=== PATIENT | female | born 1950 | race Caucasian/White ===

== ENCOUNTER → 2016-04-21 | Outpatient (CLI) | payer BC, MEDICARE, MEDICAID ==
[~2016-04-21] MED LIST: AMITRIPTYLINE25 M1 PO; ATROVENT I0.2 MG/1 M INH; ATROVENT INHALE14 GM IH; BREO ELLIPTA1 POW INH; CELEXA20 MG PO; COMPAZINE5 M1 PO; DULERA1 AR1 IH; ED SEPTRA/2 TAB/BOTT PO; ESTRACE1 MG PO; FOLIC ACID PO; IRON325 M1 PO; MAGNESIUM OXID420 MG PO; METAXALONE800 M1 PO; NORCO 325 MG-51 TA1 PO; OMEPRAZOLE MAGN20 MG PO; POTASSIUM CHLO20 MEQ PO; PREDNISONE20 M1 PO; PROVENTIL0.09 MG/A1 IH; PROVENTIL0.09 MG/Ac IH; SPIRIVA HANDIH18 MCG IH; SUMATRIPTAN SU100 MG PO; TOPAMAX50 MG PO; TRIAMTERENE/HCT1 TAB PO; VERAPAMIL HCL120 M1 PO; ZYRTEC 10MG10 MG PO; [UNRECOGNIZED DRUG - OTHER] PO
== END ==
LOC: LAB 09:54
DX: D50.0 Iron deficiency anemia secondary to blood loss (chronic) (principal)

== ENCOUNTER 2016-05-23 05:39 | Emergency (ER) | payer BC, MEDICARE, MEDICAID ==
[~2016-05-23 05:39] MED LIST changes: -ED SEPTRA/2 TAB/BOTT PO
[2016-05-23] MEDS ORDERED: ED SEPTRA/2 TAB/BOTT PO (09:18)
[2016-05-23 09:33] VITALS: BP 150/69
== END 2016-05-23 09:32 | disposition home or self-care (01) ==
LOC: ED 05:39
DX: K59.00 Constipation, unspecified (principal); N39.0 Urinary tract infection, site not specified
CPT/HCPCS: A4353

== ENCOUNTER → 2016-06-01 | Outpatient (CLI) | payer BC, MEDICARE, MEDICAID ==
[~2016-06-01] MED LIST changes: +ED SEPTRA/2 TAB/BOTT PO
== END ==
LOC: LAB 13:50
DX: Z00.00 Encounter for general adult medical examination without abnormal findings (principal); I10 Essential (primary) hypertension; J44.9 Chronic obstructive pulmonary disease, unspecified; G40.309 Generalized idiopathic epilepsy and epileptic syndromes, not intractable, without status epilepticus; K21.9 Gastro-esophageal reflux disease without esophagitis; M81.8 Other osteoporosis without current pathological fracture; K59.09 Other constipation; R73.02 Impaired glucose tolerance (oral); D50.0 Iron deficiency anemia secondary to blood loss (chronic)

== ENCOUNTER → 2016-06-10 | Outpatient (CLI) | payer BC, MEDICARE, MEDICAID | LOC: RAD 09:59 | DX: Z13.820 Encounter for screening for osteoporosis (principal); M81.0 Age-related osteoporosis without current pathological fracture ==

== ENCOUNTER → 2016-06-23 | Outpatient (CLI) | payer BC, MEDICARE, MEDICAID | LOC: LAB 13:34 | DX: M79.1 Myalgia (principal) ==

== ENCOUNTER → 2017-01-07 | Outpatient (CLI) | payer BC, MEDICARE, MEDICAID ==
[~2017-01-07] VITALS: Ht 157.5 cm; Wt 66.8 kg
[~2017-01-07] MED LIST changes: +CYMBALTA60 M1 PO; +FOSAMAX PLUS D1 TAB PO; +LOPERAMIDE2 M2 PO; +PREMARIN30 GM VG; +REQUIP0.25 M1; +XARELTO10 MG PO
[2017-01-07 14:43] VITALS: BP 147/74
== END ==
LOC: AMSURD 14:17
DX: R00.2 Palpitations (principal)

== ENCOUNTER → 2017-08-15 | Outpatient (CLI) | payer BC, MEDICARE, MEDICAID ==
[2017-01-07 14:43] VITALS: BP 147/74
== END ==
LOC: CARDLAB 07:59 → CARDREHAB 14:59
DX: R07.9 Chest pain, unspecified (principal)

== ENCOUNTER → 2017-08-31 | Outpatient (CLI) | payer BC, MEDICARE, MEDICAID ==
[2017-01-07 14:43] VITALS: BP 147/74
[2017-08-31 10:38] LABS: PROTHROMBIN TIME 9.6 SECONDS (9.0-12.0)
[2017-08-31 10:42] LABS: ALT/SGPT 19 U/L (9-52); AST-SGOT 17 U/L (14-36); BUN/CREATININE RATIO 22.1 (6.0-26.0); CALCIUM 9.9 mg/dL (8.4-10.2); CARBON DIOXIDE 28 mmol/L (22-30); GLUCOSE 99 mg/dL (65-105); LIPASE 75 U/L (23-300); POTASSIUM 4.1 mmol/L (3.6-5.0); SODIUM 143 mmol/L (137-145); TOTAL BILIRUBIN 0.2 mg/dL (0.2-1.3); TOTAL PROTEIN 7.1 g/dL (6.3-8.2)
== END ==
LOC: LAB 10:15
PROVIDERS: Family Medicine
DX: R10.9 Unspecified abdominal pain (principal); R23.8 Other skin changes

== ENCOUNTER → 2017-09-16 | Outpatient (CLI) | payer BC, MEDICARE, MEDICAID ==
[2017-01-07 14:43] VITALS: BP 147/74
== END ==
LOC: CARDLAB 09-09 09:54 → CARDREHAB 10:27 → CARDLAB 11:07
DX: R07.9 Chest pain, unspecified (principal)
CPT/HCPCS: A9500

== ENCOUNTER → 2017-09-23 | Outpatient (CLI) | payer BC, MEDICARE, MEDICAID ==
[2017-01-07 14:43] VITALS: BP 147/74
== END ==
LOC: LAB 09:13
DX: D64.9 Anemia, unspecified (principal); R14.2 Eructation; R14.0 Abdominal distension (gaseous); K21.9 Gastro-esophageal reflux disease without esophagitis; R12 Heartburn; K44.9 Diaphragmatic hernia without obstruction or gangrene

== ENCOUNTER → 2017-12-05 | Outpatient (CLI) | payer BC, MEDICARE, MEDICAID ==
[2017-01-07 14:43] VITALS: BP 147/74
== END ==
LOC: RAD 14:46
DX: M51.37 Other intervertebral disc degeneration, lumbosacral region (principal); M48.07 Spinal stenosis, lumbosacral region; M51.26 Other intervertebral disc displacement, lumbar region; M43.8X6 Other specified deforming dorsopathies, lumbar region

== ENCOUNTER 2018-02-05 09:13 | Emergency (ER) | payer BC, MEDICARE, MEDICAID ==
[~2018-02-05] VITALS: Ht 152.4 cm; Wt 68.2 kg
[2018-02-05 09:17] VITALS: BP 128/58
[2018-02-05] MEDS ORDERED: CELEXA 20MG20 MG/TA1 PO (09:20)
[2018-02-05] MEDS ORDERED: ACETAMINOPHEN-O1 TAB PO (09:20)
[2018-02-05] MEDS ORDERED: AMBIEN5 M1 PO (09:20)
[2018-02-05] MEDS ORDERED: VENLAFAXINE H37.5 M4 PO (09:20)
== END 2018-02-05 11:11 | disposition home or self-care (01) ==
LOC: ED 09:13
DX: S80.02XA Contusion of left knee, initial encounter (principal); W01.198A Fall on same level from slipping, tripping and stumbling with subsequent striking against other object, initial encounter; Y93.01 Activity, walking, marching and hiking; Y92.9 Unspecified place or not applicable; G40.909 Epilepsy, unspecified, not intractable, without status epilepticus

== ENCOUNTER 2018-06-20 19:37 | Emergency (ER) | payer BC, MEDICARE, MEDICAID ==
[~2018-06-20 19:37] MED LIST changes: +ACETAMINOPHEN-O1 TAB PO; +AMBIEN5 M1 PO; +CELEXA 20MG20 MG/TA1 PO; -PROVENTIL0.09 MG/A1 IH; +VENLAFAXINE H37.5 M4 PO
[2018-06-20] MEDS ORDERED: CYCLOBENZAPRINE10 M1 PO (19:50)
[2018-06-20] MEDS ORDERED: TOVIAZ4 MG PO (19:52)
[2018-06-20 20:56] LABS: BASO # 0.1 (0.02-0.10); EOS # 0.1 (0.04-0.40); EOS % 0.8 % (1.0-5.0); HEMATOCRIT 39.1 % (37.0-47.0); HEMOGLOBIN 12.6 g/dL (12.5-16.0); LYMPH# 2.6 (1.50-4.00); MEAN CELL VOLUME 86 fl (78-100); MEAN CORPUSCULAR HEMOGLOBIN 28 pg (27-31); MEAN CORPUSCULAR HGB CONC 32 g/dL (33-37); MEAN PLATELET VOLUME 10.5 fl (7.4-10.4); MONO # 0.9 (0.20-0.80); NEU # 8.3 (1.40-6.50); PLATELET COUNT 334 K/mm3 (130-400); RED BLOOD COUNT 4.55 M/mm3 (4.10-5.30); RED CELL DISTRIBUTION WIDTH 13.8 % (11.5-14.5)
[2018-06-20] MEDS ORDERED: OMEPRAZOLE D/R20 MG PO (20:59)
[2018-06-20] MEDS ORDERED: SUCRALFATE1 G1 PO (21:00)
[2018-06-20] MEDS ORDERED: ZOFRAN4 M2 (21:01)
[2018-06-20] MEDS ORDERED: LOPERAMIDE2 M2 (21:01)
[2018-06-20] MEDS ORDERED: VENLAFAXINE HYD25 MG (21:01)
[2018-06-20 21:08] LABS: ALT/SGPT 15 U/L (9-52); AST-SGOT 19 U/L (14-36); CALCIUM 9.1 mg/dL (8.4-10.2); CARBON DIOXIDE 29 mmol/L (22-30); GLUCOSE 125 mg/dL (65-105); POTASSIUM 4.1 mmol/L (3.6-5.0); SODIUM 135 mmol/L (137-145); TOTAL BILIRUBIN 0.6 mg/dL (0.2-1.3); TOTAL PROTEIN 7.2 g/dL (6.3-8.2)
[2018-06-20 21:24] LABS: ACETAMINOPHEN < 4 ug/mL (10-30); ALCOHOL IN-HOUSE < 10 mg/dL
[2018-06-20 21:33] LABS: URINE APPEARANCE HAZY; URINE COLOR YELLOW
[2018-06-20 21:34] LABS: URINE BILIRUBIN NEGATIVE (NEGATIVE); URINE BLOOD NEGATIVE (NEGATIVE); URINE GLUCOSE NEGATIVE (NEGATIVE); URINE KETONE NEGATIVE (NEGATIVE); URINE LEUKOCYTE ESTERASE NEGATIVE (NEGATIVE); URINE MUCUS PRESENT (NOT PRESENT); URINE NITRATE NEGATIVE (NEGATIVE); URINE PROTEIN(semi-quant) TRACE mg/dL (NEGATIVE); URINE UROBILINOGEN NORMAL (NORMAL)
[2018-06-20] MEDS ORDERED: THEOPHYLLINE A300 M1 PO (22:52)
[2018-06-20] MEDS ORDERED: PROVENTIL0.09 MG/A1 IH (22:53)
[2018-06-20] MEDS ORDERED: SYMBICORT1 AE3 IH (22:54)
[2018-06-20 23:23] LABS: PROTHROMBIN TIME 9.9 SECONDS (9.0-12.0)
[2018-06-21 02:09] VITALS: BP 128/63
== END 2018-06-21 02:30 | disposition short-term general hospital (02) ==
LOC: ED 19:37
PROVIDERS: Nurse Practitioner Family
DX: R45.851 Suicidal ideations (principal); R41.82 Altered mental status, unspecified; S31.109A Unspecified open wound of abdominal wall, unspecified quadrant without penetration into peritoneal cavity, initial encounter; J44.9 Chronic obstructive pulmonary disease, unspecified; F32.9 Major depressive disorder, single episode, unspecified; M79.7 Fibromyalgia; Z90.710 Acquired absence of both cervix and uterus; Z87.891 Personal history of nicotine dependence
CPT/HCPCS: J2060; J2270; J7030

== ENCOUNTER → 2018-08-11 | Outpatient (CLI) | payer BC, MEDICARE, MEDICAID ==
[~2018-08-11] MED LIST changes: +CYCLOBENZAPRINE10 M1 PO; +LOPERAMIDE2 M2; +OMEPRAZOLE D/R20 MG PO; +PROVENTIL0.09 MG/A1 IH; +SUCRALFATE1 G1 PO; +SYMBICORT1 AE3 IH; +THEOPHYLLINE A300 M1 PO; +TOVIAZ4 MG PO; +VENLAFAXINE HYD25 MG; +ZOFRAN4 M2
== END ==
LOC: RAD 10:06
DX: M25.532 Pain in left wrist (principal); M79.642 Pain in left hand

== ENCOUNTER → 2018-09-08 | Outpatient (CLI) | payer BC, MEDICARE, MEDICAID ==
[2018-09-08 11:49] LABS: BASO # 0.1 (0.02-0.10); EOS # 0.1 (0.04-0.40); EOS % 1.4 % (1.0-5.0); HEMATOCRIT 47.1 % (37.0-47.0); HEMOGLOBIN 15.1 g/dL (12.5-16.0); LYMPH# 2.1 (1.50-4.00); MEAN CELL VOLUME 91 fl (78-100); MEAN CORPUSCULAR HEMOGLOBIN 29 pg (27-31); MEAN CORPUSCULAR HGB CONC 32 g/dL (33-37); MEAN PLATELET VOLUME 10.3 fl (7.4-10.4); MONO # 0.7 (0.20-0.80); NEU # 4.9 (1.40-6.50); PLATELET COUNT 327 K/mm3 (130-400); RED BLOOD COUNT 5.17 M/mm3 (4.10-5.30); RED CELL DISTRIBUTION WIDTH 15.4 % (11.5-14.5); WHITE BLOOD COUNT 7.9 K/mm3 (4.8-10.8)
== END ==
LOC: LAB 11:22
PROVIDERS: Family Medicine
DX: D50.0 Iron deficiency anemia secondary to blood loss (chronic) (principal)

== ENCOUNTER → 2018-10-26 | Outpatient (CLI) | payer BC, MEDICARE, MEDICAID | LOC: RAD 06:58 | DX: R10.11 Right upper quadrant pain (principal) ==

== ENCOUNTER → 2019-03-29 | Outpatient (CLI) | payer BC, MEDICARE, MEDICAID ==
[2019-03-29 11:58] LABS: EOS # 0.1 (0.04-0.40); EOS % 0.8 % (1.0-5.0); HEMATOCRIT 45.5 % (37.0-47.0); HEMOGLOBIN 14.9 g/dL (12.5-16.0); LYMPH# 2.6 (1.50-4.00); MEAN CELL VOLUME 89 fl (78-100); MEAN CORPUSCULAR HEMOGLOBIN 29 pg (27-31); MEAN CORPUSCULAR HGB CONC 33 g/dL (33-37); MEAN PLATELET VOLUME 10.1 fl (7.4-10.4); MONO # 0.8 (0.20-0.80); NEU # 6.1 (1.40-6.50); PLATELET COUNT 334 K/mm3 (130-400); RED BLOOD COUNT 5.14 M/mm3 (4.10-5.30); RED CELL DISTRIBUTION WIDTH 14.1 % (11.5-14.5); WHITE BLOOD COUNT 9.6 K/mm3 (4.8-10.8)
== END ==
LOC: LAB 11:46
PROVIDERS: Family Medicine
DX: D50.0 Iron deficiency anemia secondary to blood loss (chronic) (principal)

== ENCOUNTER 2019-05-10 03:55 | Emergency (ER) | payer BC, MEDICARE, MEDICAID ==
[2019-05-10] MEDS ORDERED: SPIRIVA RE2.5 MCG/Ac IH (04:05)
[2019-05-10] MEDS ORDERED: VENLAFAXINE HY150 MG PO (04:06)
[2019-05-10] MEDS ORDERED: NORVASC 10MG10 MG PO (04:06)
[2019-05-10] MEDS ORDERED: FOLIC ACID 40400 MCG PO (04:07)
[2019-05-10] MEDS ORDERED: CARAFATE 1GM1 G PO (04:07)
[2019-05-10] MEDS ORDERED: PRILOSEC 20MG20 MG PO (04:19)
[2019-05-10] MEDS ORDERED: ZOFRAN4 M2 PO (04:20)
[2019-05-10 05:09] LABS: ALBUMIN 3.5 g/dL (3.4-4.8)
[2019-05-10 05:10] LABS: POTASSIUM 4.6 mmol/L (3.5-5.1)
[2019-05-10 05:11] LABS: CALCIUM 9.1 mg/dL (8.3-10.5)
[2019-05-10 05:12] LABS: TOTAL PROTEIN 6.1 g/dL (6.2-8.1)
[2019-05-10 05:13] LABS: EOS # 0.1 (0.04-0.40); EOS % 0.9 % (1.0-5.0); HEMATOCRIT 41.2 % (37.0-47.0); HEMOGLOBIN 12.9 g/dL (12.5-16.0); LYMPH# 2.7 (1.50-4.00); MEAN CELL VOLUME 92 fl (78-100); MEAN CORPUSCULAR HEMOGLOBIN 29 pg (27-31); MEAN CORPUSCULAR HGB CONC 31 g/dL (33-37); MEAN PLATELET VOLUME 9.8 fl (7.4-10.4); MONO # 1.2 (0.20-0.80); NEU # 7.9 (1.40-6.50); PLATELET COUNT 332 K/mm3 (130-400); RED BLOOD COUNT 4.47 M/mm3 (4.10-5.30); RED CELL DISTRIBUTION WIDTH 14.8 % (11.5-14.5); WHITE BLOOD COUNT 11.9 K/mm3 (4.8-10.8)
[2019-05-10 05:14] LABS: TOTAL BILIRUBIN 0.3 mg/dL (0.2-1.2)
[2019-05-10 05:29] LABS: LIPASE 6 U/L (8-78)
[2019-05-10 05:36] LABS: PH-URINE 6.5 (5.0 - 8.0); URINE APPEARANCE CLOUDY; URINE BILIRUBIN NEGATIVE (NEGATIVE); URINE BLOOD TRACE (NEGATIVE); URINE COLOR LT YELLOW; URINE GLUCOSE 50 mg/dL mg/dL (NEGATIVE); URINE KETONE NEGATIVE (NEGATIVE); URINE LEUKOCYTE ESTERASE TRACE (NEGATIVE); URINE NITRATE NEGATIVE (NEGATIVE); URINE PROTEIN(semi-quant) TRACE mg/dL (NEGATIVE); URINE UROBILINOGEN NORMAL (NORMAL)
[2019-05-10 05:37] LABS: D-DIMER 0.31 mg/L FEU (0.15-0.50)
[2019-05-10 05:52] VITALS: BP 154/77
[2019-05-10] MEDS ORDERED: CYCLOBENZAPRINE10 M1 PO (05:52)
[2019-05-10] MEDS ORDERED: MACROBID 100 M100 MG PO (05:52)
== END 2019-05-10 05:58 | disposition home or self-care (01) ==
LOC: ED 03:55
PROVIDERS: Physician Assistant
DX: M54.6 Pain in thoracic spine (principal); G89.29 Other chronic pain; N39.0 Urinary tract infection, site not specified; M79.7 Fibromyalgia; J44.9 Chronic obstructive pulmonary disease, unspecified; Z88.6 Allergy status to analgesic agent; Z87.891 Personal history of nicotine dependence
CPT/HCPCS: J2270

== ENCOUNTER → 2019-05-24 | Outpatient (CLI) | payer BC, MEDICARE ==
[2019-05-10 05:52] VITALS: BP 154/77
[~2019-05-24] MED LIST changes: +CARAFATE 1GM1 G PO; +FOLIC ACID 40400 MCG PO; +MACROBID 100 M100 MG PO; +NORVASC 10MG10 MG PO; +PRILOSEC 20MG20 MG PO; +SPIRIVA RE2.5 MCG/Ac IH; +VENLAFAXINE HY150 MG PO; +ZOFRAN4 M2 PO
== END ==
LOC: RAD 05-23 09:15
DX: M43.8X4 Other specified deforming dorsopathies, thoracic region (principal); M48.061 Spinal stenosis, lumbar region without neurogenic claudication; M47.816 Spondylosis without myelopathy or radiculopathy, lumbar region; M51.34 Other intervertebral disc degeneration, thoracic region; M51.36 Other intervertebral disc degeneration, lumbar region

== ENCOUNTER → 2019-08-21 | Outpatient (CLI) | payer BC, MEDICARE ==
[2019-08-21 13:13] LABS: HEMATOCRIT 37.9 % (37.0-47.0); HEMOGLOBIN 11.7 g/dL (12.5-16.0); MEAN PLATELET VOLUME 9.4 fl (7.4-10.4); RED BLOOD COUNT 4.39 M/mm3 (4.10-5.30); RED CELL DISTRIBUTION WIDTH 13.6 % (11.5-14.5); WHITE BLOOD COUNT 9.8 K/mm3 (4.8-10.8)
[2019-08-22 16:05] LABS: POTASSIUM 3.6 mmol/L (3.5-5.1)
[2019-08-22 16:06] LABS: CALCIUM 9.2 mg/dL (8.3-10.5)
[2019-08-22 16:13] LABS: MAGNESIUM 2.26 mg/dL (1.60-2.60)
== END ==
LOC: LAB 12:53
PROVIDERS: Family Medicine
DX: D50.0 Iron deficiency anemia secondary to blood loss (chronic) (principal); M81.0 Age-related osteoporosis without current pathological fracture

== ENCOUNTER → 2020-01-04 | Outpatient (CLI) | payer BC, MEDICARE | LOC: RAD 14:39 | DX: S62.613A Displaced fracture of proximal phalanx of left middle finger, initial encounter for closed fracture (principal) ==

== ENCOUNTER → 2020-02-22 | Outpatient (CLI) | payer BC, MEDICARE ==
[2020-02-22 22:29] LABS: IMMUNOGLOBULIN E, TOTAL 250 IU/mL (0-100)
== END ==
LOC: LAB 11:27
PROVIDERS: Physician Assistant
DX: R06.02 Shortness of breath (principal)

== ENCOUNTER → 2020-04-28 | Outpatient (CLI) | payer BC, MEDICARE ==
[2020-04-28 17:37] LABS: EOS # 0.2 (0.04-0.40); EOS % 2.3 % (1.0-5.0); HEMATOCRIT 43.4 % (37.0-47.0); HEMOGLOBIN 13.8 g/dL (12.5-16.0); LYMPH# 2.5 (1.50-4.00); MEAN CELL VOLUME 94 fl (78-100); MEAN CORPUSCULAR HEMOGLOBIN 30 pg (27-31); MEAN CORPUSCULAR HGB CONC 32 g/dL (33-37); MEAN PLATELET VOLUME 9.9 fl (7.4-10.4); MONO # 0.8 (0.20-0.80); NEU # 4.1 (1.40-6.50); PLATELET COUNT 333 K/mm3 (130-400); RED BLOOD COUNT 4.61 M/mm3 (4.10-5.30); RED CELL DISTRIBUTION WIDTH 13.5 % (11.5-14.5); WHITE BLOOD COUNT 7.7 K/mm3 (4.8-10.8)
[2020-04-28 17:45] LABS: ALBUMIN 4.1 g/dL (3.4-4.8); POTASSIUM 4.4 mmol/L (3.5-5.1)
[2020-04-28 17:46] LABS: CALCIUM 9.2 mg/dL (8.3-10.5)
[2020-04-28 17:47] LABS: TOTAL PROTEIN 6.8 g/dL (6.2-8.1)
[2020-04-28 17:49] LABS: TOTAL BILIRUBIN 0.2 mg/dL (0.2-1.2)
== END ==
LOC: LAB 17:16
PROVIDERS: Family Medicine
DX: D50.9 Iron deficiency anemia, unspecified (principal); M81.0 Age-related osteoporosis without current pathological fracture; I10 Essential (primary) hypertension

== ENCOUNTER → 2020-07-09 | Outpatient (CLI) | payer BC, MEDICARE ==
[~2020-07-09] MED LIST changes: +IPRATROPIUM BROM3 M1 IH; +LOSARTAN POTAS100 MG PO
== END ==
LOC: RAD 14:20 → MAMMO 15:15
DX: M81.0 Age-related osteoporosis without current pathological fracture (principal)

== ENCOUNTER → 2020-09-12 | Outpatient (CLI) | payer BC, MEDICARE ==
[2020-09-12 14:35] VITALS: BP 200/95
[2020-09-12 15:00] VITALS: BP 197/101
[2020-09-12 15:02] LABS: HEMATOCRIT 39.9 % (37.0-47.0); HEMOGLOBIN 13.1 g/dL (12.5-16.0); MEAN PLATELET VOLUME 10.6 fl (7.4-10.4); RED BLOOD COUNT 4.26 M/mm3 (4.10-5.30); RED CELL DISTRIBUTION WIDTH 13.7 % (11.5-14.5); WHITE BLOOD COUNT 8.1 K/mm3 (4.8-10.8)
[2020-09-12 15:19] LABS: ALBUMIN 3.8 g/dL (3.4-4.8); POTASSIUM 3.4 mmol/L (3.5-5.1); SODIUM 141 mmol/L (136-145)
[2020-09-12 15:21] LABS: CALCIUM 9.2 mg/dL (8.3-10.5)
[2020-09-12 15:22] LABS: GLUCOSE 88 mg/dL (65-105); TOTAL PROTEIN 6.1 g/dL (6.2-8.1)
[2020-09-12 15:23] LABS: CARBON DIOXIDE 28 mmol/L (23-31)
[2020-09-12 15:24] LABS: TOTAL BILIRUBIN 0.2 mg/dL (0.2-1.2)
[2020-09-12 15:27] LABS: AST-SGOT 11 U/L (5-34)
[2020-09-12 15:28] LABS: ALT/SGPT 8 U/L (0-55)
[2020-09-12 15:30] VITALS: BP 186/96
[2020-09-12 15:57] LABS: TROPONIN-I < 0.03 ng/mL (<0.030)
[2020-09-12 16:10] VITALS: BP 172/89
== END ==
LOC: AMSURD 14:25
PROVIDERS: Nurse Practitioner
DX: I16.0 Hypertensive urgency (principal); R11.0 Nausea

== ENCOUNTER → 2020-10-27 | Outpatient (CLI) | payer BC, MEDICARE | LOC: RAD 15:56 | DX: K44.9 Diaphragmatic hernia without obstruction or gangrene (principal); R06.00 Dyspnea, unspecified; M43.8X4 Other specified deforming dorsopathies, thoracic region; Z90.49 Acquired absence of other specified parts of digestive tract ==

== ENCOUNTER → 2020-12-11 | Outpatient (CLI) | payer BC, MEDICARE ==
[2020-12-11 15:00] LABS: BASO # 0.03 (0.02-0.10); EOS # 0.11 (0.04-0.40); HEMATOCRIT 42.3 % (37.0-47.0); HEMOGLOBIN 13.3 g/dL (12.5-16.0); LYMPH# 2.49 (1.50-4.00); MEAN CELL VOLUME 89 fl (78-100); MEAN CORPUSCULAR HEMOGLOBIN 28 pg (27-31); MEAN CORPUSCULAR HGB CONC 31 g/dL (33-37); MEAN PLATELET VOLUME 9.4 fl (7.4-10.4); MONO # 1.13 (0.20-0.80); NEU # 7.01 (1.40-6.50); RED BLOOD COUNT 4.74 M/mm3 (4.10-5.30); RED CELL DISTRIBUTION WIDTH 13.3 % (11.5-14.5); WHITE BLOOD COUNT 10.8 K/mm3 (4.8-10.8)
[2020-12-11 15:57] LABS: PLATELET COUNT 546 K/mm3 (130-400)
[2020-12-12 03:20] LABS: FOLATE (FOLIC ACID) >20.0 ng/mL (2.0-20.0)
== END ==
LOC: LAB 14:43
PROVIDERS: Nurse Practitioner Adult Health
DX: D50.0 Iron deficiency anemia secondary to blood loss (chronic) (principal)

== ENCOUNTER 2021-02-25 15:07 | Emergency (ER) | payer BC, MEDICARE ==
[~2021-02-25] VITALS: Ht 157.5 cm; Wt 54.1 kg
[~2021-02-25 15:07] MED LIST changes: -LOSARTAN POTAS100 MG PO
[2021-02-25 16:30] LABS: BASO # 0.04 K/mm3 (0.02-0.10); EOS # 0.03 K/mm3 (0.04-0.40); EOS % 0.3 % (1.0-5.0); HEMATOCRIT 38.2 % (37.0-47.0); HEMOGLOBIN 12.2 g/dL (12.5-16.0); LYMPH# 1.04 K/mm3 (1.50-4.00); MEAN CELL VOLUME 92 fl (78-100); MEAN CORPUSCULAR HEMOGLOBIN 29 pg (27-31); MEAN CORPUSCULAR HGB CONC 32 g/dL (33-37); MEAN PLATELET VOLUME 10.5 fl (7.4-10.4); MONO # 0.28 K/mm3 (0.20-0.80); PLATELET COUNT 366 K/mm3 (130-400); RED BLOOD COUNT 4.16 M/mm3 (4.10-5.30); RED CELL DISTRIBUTION WIDTH 17.2 % (11.5-14.5); WHITE BLOOD COUNT 10.7 K/mm3 (4.8-10.8)
[2021-02-25 16:33] LABS: ALBUMIN 4.5 g/dL (3.4-4.8); POTASSIUM 4.2 mmol/L (3.5-5.1); SODIUM 138 mmol/L (136-145)
[2021-02-25 16:35] LABS: CALCIUM 10.6 mg/dL (8.3-10.5)
[2021-02-25 16:36] LABS: GLUCOSE 118 mg/dL (65-105); TOTAL PROTEIN 7.5 g/dL (6.2-8.1)
[2021-02-25 16:37] LABS: CARBON DIOXIDE 27 mmol/L (23-31)
[2021-02-25 16:38] LABS: TOTAL BILIRUBIN 0.4 mg/dL (0.2-1.2)
[2021-02-25 16:41] LABS: AST-SGOT 15 U/L (5-34)
[2021-02-25 16:43] LABS: ALT/SGPT 14 U/L (0-55)
[2021-02-25 16:44] LABS: ACETAMINOPHEN < 1 ug/mL
[2021-02-25 18:54] LABS: URINE APPEARANCE CLEAR; URINE BILIRUBIN NEGATIVE (NEGATIVE); URINE BLOOD 50 ery/uL (NEGATIVE); URINE COLOR YELLOW; URINE GLUCOSE NEGATIVE (NEGATIVE); URINE KETONE NEGATIVE (NEGATIVE); URINE LEUKOCYTE ESTERASE 1+ (NEGATIVE); URINE MUCUS PRESENT (NOT PRESENT); URINE NITRATE NEGATIVE (NEGATIVE); URINE PROTEIN(semi-quant) 1+ mg/dL (NEGATIVE); URINE UROBILINOGEN NORMAL (NORMAL)
[2021-02-26] MEDS ORDERED: LOSARTAN POTAS100 MG PO (19:08)
[2021-02-27 07:45] VITALS: BP 134/86
== END 2021-02-27 07:45 ==
LOC: ED 15:07
PROVIDERS: Physician Assistant
DX: F23 Brief psychotic disorder (principal); R44.3 Hallucinations, unspecified; F10.10 Alcohol abuse, uncomplicated; F41.9 Anxiety disorder, unspecified; F32.A Depression, unspecified; I10 Essential (primary) hypertension; K21.9 Gastro-esophageal reflux disease without esophagitis; E66.9 Obesity, unspecified; M79.7 Fibromyalgia; Z68.21 Body mass index [BMI] 21.0-21.9, adult; Z79.899 Other long term (current) drug therapy
CPT/HCPCS: J7030; L0172

== ENCOUNTER → 2021-04-16 | Outpatient (CLI) | payer BC, MEDICARE ==
[~2021-04-16] MED LIST changes: +LOSARTAN POTAS100 MG PO
== END ==
LOC: RAD 12:12
DX: M85.811 Other specified disorders of bone density and structure, right shoulder (principal)

== ENCOUNTER → 2021-06-03 | Outpatient (CLI) | payer BC, MEDICARE | LOC: MAMMO 06-02 10:45 | DX: Z13.820 Encounter for screening for osteoporosis (principal); Z12.31 Encounter for screening mammogram for malignant neoplasm of breast; I10 Essential (primary) hypertension; Z87.891 Personal history of nicotine dependence ==

== ENCOUNTER → 2021-06-22 | Outpatient (CLI) | payer BC, MEDICARE | LOC: RAD 12:00 | DX: K44.9 Diaphragmatic hernia without obstruction or gangrene (principal); S22.42XA Multiple fractures of ribs, left side, initial encounter for closed fracture; M48.55XA Collapsed vertebra, not elsewhere classified, thoracolumbar region, initial encounter for fracture; X58.XXXA Exposure to other specified factors, initial encounter ==

== ENCOUNTER 2021-07-17 18:00 | Emergency (ER) | payer BC, MEDICARE ==
[~2021-07-17] VITALS: Ht 157.5 cm; Wt 54.1 kg
[2021-07-17] MEDS ORDERED: CYCLOBENZAPRINE10 M1 PO (20:04)
[2021-07-17] MEDS ORDERED: PERCOCET 325 MG1 TA3 PO (20:04)
[2021-07-17 20:15] VITALS: BP 165/98
== END 2021-07-17 20:15 | disposition home or self-care (01) ==
LOC: ED 18:00
DX: S22.089A Unspecified fracture of T11-T12 vertebra, initial encounter for closed fracture (principal); W18.30XA Fall on same level, unspecified, initial encounter
CPT/HCPCS: J1885; J2360

== ENCOUNTER → 2021-08-13 | Outpatient (CLI) | payer BC, MEDICARE ==
[~2021-08-13] MED LIST changes: +PERCOCET 325 MG1 TA3 PO
== END ==
LOC: RAD 13:17
DX: M48.55XD Collapsed vertebra, not elsewhere classified, thoracolumbar region, subsequent encounter for fracture with routine healing (principal); M48.04 Spinal stenosis, thoracic region
CPT/HCPCS: A9585

== ENCOUNTER → 2021-08-17 | Outpatient (CLI) | payer BC, MEDICARE | LOC: RAD 15:03 | DX: M48.54XD Collapsed vertebra, not elsewhere classified, thoracic region, subsequent encounter for fracture with routine healing (principal); S32.029A Unspecified fracture of second lumbar vertebra, initial encounter for closed fracture ==

== ENCOUNTER → 2022-02-11 | Outpatient (CLI) | payer BC, MEDICARE, MEDICAID | LOC: RAD 14:53 | DX: M19.012 Primary osteoarthritis, left shoulder (principal) ==

== ENCOUNTER → 2022-05-07 | Outpatient (CLI) | payer OTHER, MEDICARE, MEDICAID | LOC: LAB 14:31 | DX: Z00.00 Encounter for general adult medical examination without abnormal findings (principal); M54.50 Low back pain, unspecified ==

== ENCOUNTER 2022-05-12 09:39 | Emergency (ER) | payer OTHER, MEDICARE, MEDICAID ==
[~2022-05-12] VITALS: Ht 157.5 cm; Wt 55.2 kg
[2022-05-12 11:25] VITALS: BP 154/68
== END 2022-05-12 11:30 | disposition home or self-care (01) ==
LOC: ED 09:39
DX: M48.56XA Collapsed vertebra, not elsewhere classified, lumbar region, initial encounter for fracture (principal); G89.29 Other chronic pain

== ENCOUNTER → 2022-07-13 | Outpatient (CLI) | payer MEDICARE, MEDICAID | LOC: RAD 13:31 | DX: R07.81 Pleurodynia (principal) ==

== ENCOUNTER → 2022-08-05 | Outpatient (CLI) | payer MEDICARE, MEDICAID | LOC: RAD 15:12 | DX: M79.645 Pain in left finger(s) (principal) ==

== ENCOUNTER → 2023-06-06 | Outpatient (CLI) | payer MEDICARE ==
[~2023-06-06] MED LIST changes: +DESYREL50 MG PO; +DULOXETINE60 MG PO; +HYDROXYZINE HCL25 M1 PO; +PANTOPRAZOLE SO40 MG PO; +PREGABALIN150 MG PO
== END ==
LOC: LAB 10:57
DX: D50.8 Other iron deficiency anemias (principal)

== ENCOUNTER → 2023-07-13 | Outpatient (CLI) | payer OTHER, MEDICARE | LOC: RAD 13:52 | DX: J44.1 Chronic obstructive pulmonary disease with (acute) exacerbation (principal) ==